=== PATIENT | male | born 1975 | race Caucasian/White ===

== ENCOUNTER → 2020-11-04 | Outpatient (CLI) | payer BC ==
--- NOTE | 2020-11-05 07:06 | ECHOF ---
Referral Reason:Q23.1 Congenital insufficiency of aortic valve MEASUREMENTS -------- HEIGHT: 190.5 cm WEIGHT: 91.6 kg BP: 121/67 RVIDd: 2.7 cm (< 3.3) IVSd: 1.0 cm (0.6 - 1.1) LVIDd: 4.7 cm (3.9 - 5.3) LVPWd: 1.0 cm (0.6 - 1.1) IVSs: 1.6 cm LVIDs: 2.9 cm LVPWs: 1.7 cm LA Diam: 3.1 cm (2.7 - 3.8) LAESV Index (A-L): 20.49 ml/m Ao Diam: 4.2 cm (2.0 - 3.7) AV Cusp: 3.3 cm (1.5 - 2.6) MV EXCURSION: 23.080 mm (> 18.000) MV EF SLOPE: 150 mm/s (70 - 150) EPSS: 0.6 cm MV E Chandra: 0.92 m/s MV DecT: 202 ms MV A Chandra: 0.62 m/s MV E/A Ratio: 1.50 AV maxP.94 mmHg AV meanP.27 mmHg RAP: 5.00 mmHg RVSP: 22.84 mmHg FINDINGS -------- Sinus rhythm. This was a technically adequate study. The left ventricular size is normal. Left ventricular wall thickness is normal. Overall left vent ricular systolic function is normal with, an EF between 55 - 60 %. The right ventricle is normal in size. Normal LA size by volume 22+/-6 ml/m2. The right atrial size is normal. Interatrial and interventricular septum intact. Aortic valve is trileaflet and is mildly thickened. There is mild aortic stenosis present. Peak/m omar gradient across the Aortic Valve is 14.94mmHg / 7.27mmHg. The mitral valve is normal. There is trace mitral regurgitation. The tricuspid valve appears structurally normal. Mild tricuspid regurgitation present. Right vent ricular systolic pressure is normal at < 35 mmHg. The pulmonic valve was not well visualized. There is no pulmonic regurgitation present. The aortic root is dilated measuring 4.2cm. Normal inferior vena cava with normal inspiratory collapse consistent with estimated right atrial pre ssure of 5 mmHg. The inferior vena cava is mildly dilated. There is no pericardial effusion. CONCLUSIONS -------- 1. Left ventricular wall thickness is normal. 2. Overall left ventricular systolic function is normal with, an EF between 55 - 60 %. 3. Normal LA size by volume 22+/-6 ml/m2. 4. Aortic valve is trileaflet and is mildly thickened. 5. There is mild aortic stenosis present. 6. Peak/mean gradient across the Aortic Valve is 14.94mmHg / 7.27mmHg. 7. There is trace mitral regurgitation. 8. Mild tricuspid regurgitation present. 9. The aortic root is dilated measuring 4.2cm. 10. Normal inferior vena cava with normal inspiratory collapse consistent with estimated right atrial pressure of 5 mmHg. 11. The inferior vena cava is mildly dilated. 12. There is no pericardial effusion. CODE ENFORCEMENT OFFICER: Griselda Andre RDCS
== END ==
LOC: RADECHMAIN 16:09
PROVIDERS: ATTEND Family Medicine
DX: I08.3 Combined rheumatic disorders of mitral, aortic and tricuspid valves (principal)
CPT/HCPCS: 93306

== ENCOUNTER 2023-05-04 08:26 | Day surgery (SDC) | payer BC ==
[2023-05-04 08:58] VITALS: RESP 16; TEMP 97.5
[2023-05-04] MEDS: LACTATED RINGERS 1,000 ML IV SCH ×2 (08:58→09:35)
[2023-05-04] MEDS ORDERED: PROPOFOL 10 MG/ML 20 ML VIAL IV ONE (09:36)
--- NOTE | 2023-05-04 09:53 | P.PCN ---
Date of Procedure: 05/04/23 Procedure(s) Performed: BRIEF HISTORY: Patient is a 48-year-old pleasant white male scheduled for an elective colonoscopy as a part of screening for colon cancer. PROCEDURE PERFORMED: Colonoscopy with biopsy. PREOPERATIVE DIAGNOSIS: Screening for colon cancer. IV sedation per Anesthesia. PROCEDURE: After informed consent was obtained, the patient, was brought into the endoscopy unit. IV sedation was administered by Anesthesia under continuous monitoring. Digital rectal examination was normal. Initially the Olympus CF-160 flexible video colonoscope was then inserted in the rectum, gradually advanced into the cecum without any difficulty. Careful examination was performed as the scope was gradually being withdrawn. Ileocecal valve and the appendiceal orifice were visualized and appeared normal. Prep was excellent. Mucosa of the cecum, ascending colon, appeared normal. In the transverse colon there was a 3 mm polyp that was removed by cold biopsy. Rest of the transverse colon, descending colon, sigmoid colon, and rectum appeared normal. Retroflexion was performed in the rectum and no lesions were seen. The patient tolerated the procedure well. IMPRESSION: 3 mm transverse colon polyp status post cold biopsy Rest of the colon appeared normal RECOMMENDATIONS: Findings of this examination were discussed with the patient as well as his family. He was advised to follow with the biopsy results. If the biopsy results adenoma he can have a repeat colonoscopy in 5 years.
[2023-05-04 10:12] VITALS: BP 103/68; PULSE 66
== END 2023-05-04 10:27 | disposition home or self-care (01) ==
LOC: ORWHC2ENDO 08:26
PROVIDERS: ATTEND Internal Medicine Gastroenterology
DX: Z12.11 Encounter for screening for malignant neoplasm of colon (principal); D12.3 Benign neoplasm of transverse colon; Z79.82 Long term (current) use of aspirin; Z79.899 Other long term (current) drug therapy; Z88.0 Allergy status to penicillin; Z98.890 Other specified postprocedural states
CPT/HCPCS: 88305; 45380; J2704

== ENCOUNTER → 2025-01-07 | Outpatient (CLI) | payer BC ==
[2025-01-07 10:22] LABS: Basophils # (A) 0.06 X 10*3/uL (0.00-0.10); Basophils % (A) 1.3 %; Eosinophils # (A) 0.25 X 10*3/uL (0.04-0.35); Eosinophils % (A) 5.5 %; HCT 43.4 % (39.6-50.0); HGB 14.8 g/dL (13.0-17.0); Lymphocytes # (A) 1.07 X 10*3/uL (0.90-5.00); Lymphocytes % (A) 23.7 %; MCH 31.7 pg (27.0-32.0); MCHC 34.1 g/dL (32.0-37.0); MCV 92.9 FL (80.0-97.0); Mean Platelet Volume 10.7 FL (9.5-12.2); Monocytes # (A) 0.48 X 10*3/uL (0.20-1.00); Monocytes % (A) 10.6 %; NRBC Per 100 WBC 0 X 10*3/uL (0.00-0.01); Neutrophils # (A) 2.64 X 10*3/uL (1.80-7.70); Neutrophils % (A) 58.7 %; Platelet Count 183 X 10*3/uL (140-440); RBC 4.67 X 10*6/uL (4.40-5.60); RDW 12.7 % (11.5-14.5); WBC 4.51 X 10*3/uL (4.50-10.00)
[2025-01-07 10:37] LABS: ALT 16 U/L (10-49); AST 20 U/L (14-35); Albumin 4.5 g/dL (3.8-4.9); Albumin/Globulin Ratio 1.88 Ratio (1.60-3.17); Alkaline Phosphatase 50 U/L (41-126); BUN/Creat Ratio 14.42 Ratio (12.00-20.00); Blood Urea Nitrogen 17.3 mg/dL (9.0-27.0); Calcium 9.4 mg/dL (8.7-10.3); Carbon Dioxide 25.9 mmol/L (21.6-31.8); Chloride 103 mmol/L (96-109); Globulin 2.4 g/dL (1.6-3.3); Glucose 95 mg/dL (70-110); Potassium 4.2 mmol/L (3.5-5.5); Sodium 139 mmol/L (135-145); Total Bilirubin 0.6 mg/dL (0.3-1.2); Total Protein 6.9 g/dL (6.2-8.2)
== END | disposition home or self-care (01) ==
LOC: LABWHC1 07:05
PROVIDERS: ATTEND Family Medicine
DX: D72.829 Elevated white blood cell count, unspecified (principal); R94.5 Abnormal results of liver function studies
CPT/HCPCS: 36415; 80053; 85025; 86803